=== PATIENT | male | born 1995 | race Two or more races ===

== ENCOUNTER 2020-07-31 02:24 | Emergency (ER) | payer OTHER ==
[~2020-07-31] VITALS: Ht 180.3 cm; Wt 89.1 kg
[2020-07-31 03:55] VITALS: BP 102/63
== END 2020-07-31 03:56 ==
LOC: ER 02:26
DX: T14.8XXA Other injury of unspecified body region, initial encounter (principal); Z02.89 Encounter for other administrative examinations; V49.9XXA Car occupant (driver) (passenger) injured in unspecified traffic accident, initial encounter; Y93.89 Activity, other specified; Y92.89 Other specified places as the place of occurrence of the external cause; Y99.8 Other external cause status
CPT/HCPCS: 99283